=== PATIENT | male | born 1960 | race African-American/Black ===

== ENCOUNTER 2022-04-21 14:08 | Emergency (ER) | payer MEDICARE, MEDICAID, SELFPAY ==
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
[2022-04-21 14:38] VITALS: BP 145/88; PULSE 111; RESP 20; TEMP 36.9; O2SAT 98; BMI 28.6
--- NOTE | 2022-04-21 14:49 | PC.NURSE ---
[id number] Da JURADO notified
[2022-04-21 14:53] LABS: Glucose, Whole Blood 471 mg/dL (60-115)
[2022-04-21 15:01] LABS: MANUAL DIFF FLAG NO
[2022-04-21 15:09] LABS: Basophils Percent Auto 0.7 % (0-2); Eosinophils Absolute Auto 0.3 X10*3/uL (0.0-0.4); Eosinophils Percent Auto 5.4 % (0-4); Hematocrit 35.5 % (42.0-52.0); Hemoglobin 12.2 g/dl (14.0-18.0); Imm Gran Abs Auto 0.01 X10*3/uL (0.00-0.03); Imm Gran Pct Auto 0.2 % (0.0-0.4); Lymphocytes Absolute Auto 2.2 X10*3/uL (1.2-4.9); Lymphocytes Percent Auto 40.3 % (20-40); Mean Corpuscular HGB Conc 34.4 g/dl (31.0-36.0); Mean Corpuscular Hemoglobin 32.1 pg (27.0-33.0); Mean Corpuscular Volume 93.4 fL (80.0-98.0); Mean Platelet Volume 10.6 fL (9.4-12.4); Monocytes Absolute Auto 0.5 X10*3/uL (0.1-1.2); Monocytes Percent Auto 8.7 % (2-11); Neutrophils Absolute Auto 2.4 x10*3/uL (2.0-8.3); Neutrophils Percent Auto 44.7 % (45-73); Platelet Count 233 X10*3/uL (160-400); White Blood Count 5.4 X10*3/uL (4.8-10.8)
[2022-04-21 15:35] LABS: COVID-19 Test Negative (Negative); IDNOW Serial# 16C4AD1C
[2022-04-21 15:50] LABS: Alanine Aminotransferase 19 U/L (0-40); Albumin Level 3.9 g/dL (3.5-5.0); Alkaline Phosphatase 121 U/L (39-117); Anion Gap 16 (12-20); Aspartate Amino Transferase 13 U/L (5-37); Bilirubin Total 0.7 mg/dL (0.0-1.0); Blood Urea Nitrogen 27 mg/dL (9-16); Calcium 9.1 mg/dL (8.4-10.2); Carbon Dioxide 25 mmol/L (22-29); Chloride 101 mmol/L (96-108); Creatinine Clr Calc Pharmacy 52.3; Estimated Glomerular Filt Rate 40; Glucose Random 524 mg/dL (60-115); Potassium 4.8 mmol/L (3.3-5.1); Sodium 137 mmol/L (135-145); Total Protein 6.5 g/dL (6.5-8.0)
[2022-04-21 16:54] LABS: Acetone, serum QL Negative (Negative)
[2022-04-21 17:42] VITALS: BP 132/77; PULSE 93; RESP 18; TEMP 36.7; O2SAT 97
[2022-04-21 18:40] LABS: Glucose, Whole Blood 344 mg/dL (60-115)
--- NOTE | 2022-04-21 18:44 | PC.NURSE ---
Report received from Aneta COMER.
[2022-04-21] MEDS: Insulin Glargine,Hum.rec.anlog 100 UNIT/ML 10 ML VIAL 24 UNIT SUBCUT (18:53)
[2022-04-21] MEDS: Insulin Lispro 100 UNIT/ML 3 ML VIAL 8 UNIT SUBCUT (18:55)
[2022-04-21 18:58] VITALS: BP 136/81; PULSE 97; RESP 18; TEMP 36.9; O2SAT 97
[2022-04-21 19:15] LABS: Glucose, Whole Blood 401 mg/dL (60-115)
== END 2022-04-21 19:27 | disposition home or self-care (01) ==
PROVIDERS: Nurse Practitioner Family; Emergency Provider Internal Medicine
DX: E11.65 Type 2 diabetes mellitus with hyperglycemia (principal); Z20.822 Contact with and (suspected) exposure to COVID-19; Z20.828 Contact with and (suspected) exposure to other viral communicable diseases; Z79.4 Long term (current) use of insulin; Z79.899 Other long term (current) drug therapy
CPT/HCPCS: 80053; 82009; 82947; 85025; 87635; 99283; 99284